=== PATIENT | male | born 1975 | race Two or more races ===

== ENCOUNTER 2016-05-13 07:26 | Emergency (ER) | payer MEDICAID ==
[~2016-05-13] VITALS: Ht 170.2 cm; Wt 74.8 kg
[~2016-05-13 07:26] MED LIST: ALBUTEROL SULF8.5 GM INH; AMOXICILLIN500 MG ORAL; ANTACID MAXIMU355 ML PO; ASPIR 8181 MG ORAL; ASPIRIN81 MG ORAL; ATENOLOL50 MG ORAL; ATORVASTATIN CA10 MG ORAL; Atorvastatin ORAL; BENADRYL50 MG ORAL; CARAFATE1 GM/10 M1 ORAL; CARVEDILOL25 MG ORAL; CYCLOBENZAPRINE10 MG ORAL; ENALAPRIL MALEA10 MG ORAL; ENALAPRIL MALEA20 MG ORAL; FUROSEMIDE40 MG ORAL; GLIPIZIDE5 MG ORAL; HYDROCHLOROTHIA25 MG ORAL; IBUPROFEN600 MG ORAL; LOVAZA1 GM ORAL; NEXIUM20 MG ORAL; NORCO 5-325 TA1 EACH ORAL; PLAVIX75 MG ORAL; PREDNISONE20 MG ORAL; RANITIDINE HCL150 MG ORAL; SPIRONOLACTONE100 MG ORAL; TENORMIN25 MG ORAL; VIBRAMYCIN100 MG ORAL
[2016-05-13] MEDS ORDERED: Ketorolac 30mg Inj IV ONE (08:00)
[2016-05-13] MEDS ORDERED: Albuterol ud Inhalation HHN ONE (08:00)
[2016-05-13] MEDS ORDERED: Morphine Sulfate 2mg/ml Inj IVP ONE (08:00)
--- NOTE | 2016-05-13 08:08 | Emergency Room Report ---
History of Present Illness General Chief Complaint: Abdominal Pain Source: Patient Present Illness HPI The patient presents with 4 days of cough and upper abdominal pain. The pain got worse tonight's ago. Pain is mainly with coughing and moving about. Says upper abdomen and radiates bilaterally to the sides. He is states the pain is 8 /10 and constant but worse when he was about. His nausea but no vomiting. The cough has gotten significant with brown phlegm and some bloods. He's also had fevers and chills. He had bronchitis a year ago and was admitted to the hospital. He denies any change in his bowels. He denies dysuria also. He has felt short of breath also. He states he's not having some wheezing. The patient is diabetic and takes oral medications and is not on insulin at this time. He's not sure what his blood sugars are at this time. Patient admitted 06/2015 for CHF and DM. Had polycythemia. Alleged non- compliance. He does not discuss any cardiac issues. Allergies: Coded Allergies: No Known Allergies (Unverified , 05/18/15) Patient History Past Medical History: see triage record, CHF Past Surgical History: PTCA - 2015 Social History: Reports: alcohol use, Denies: smoking Social History Narrative peer specialist Reviewed Nursing Documentation: PMH: Agreed, PSxH: Agreed Nursing Documentation-PMH Hx Cardiac Problems: Yes - High cholesterol Hx Hypertension: Yes Hx Pacemaker: No Hx Asthma: No Hx COPD: No Hx Diabetes: Yes Hx Cancer: No Hx Gastrointestinal Problems: Yes - GERD Hx Dialysis: No Hx Neurological Problems: No Hx Cerebrovascular Accident: No Hx Seizures: No Review of Systems All Other Systems: negative except mentioned in HPI Physical Exam Vital Signs Date Time Temp Pulse Resp B/P Pulse Ox O2 Delivery O2 Flow Rate FiO2 05/13/16 07:33 100.6 116 18 166/123 99 Room Air Sp02 EP Interpretation: reviewed, normal General Appearance: well appearing, no apparent distress, GCS 15 Head: normocephalic Eyes: bilateral eye PERRL, bilateral eye normal inspection ENT: moist mucus membranes Neck: supple Respiratory: decreased breath sounds, rales Cardiovascular #1: regular rate, rhythm, edema Cardiovascular #2: 2+ radial (R) Gastrointestinal: normal inspection, normal bowel sounds, non tender, no mass, no guarding, no rebound, distended, tenderness - minimal epigastric Musculoskeletal: back normal, gait/station normal, normal range of motion Neurologic: alert, oriented x3, grossly normal Psychiatric: mood/affect normal - with denial Skin: normal inspection, warm/dry Medical Decision Making Diagnostic Impression: Primary Impression: Pneumonia Qualified Codes: J18.9 - Pneumonia, unspecified organism Additional Impressions: Cardiomyopathy Qualified Codes: I42.0 - Dilated cardiomyopathy Polycythemia Hyponatremia ER Course The patient presents with cough fevers and chills and upper abdominal pain. Differential includes pneumonia, bronchitis, gastroenteritis amongst others. The fact that he has a history of congestive heart failures complicating with this patient might have. He also has comorbidities of hypertension and diabetes. Comprehensive evaluation of blood cultures and likely will be obtained also EKG and chest x-ray and abdominal films. CXR with L infiltrate = new without CHF. Cardiomegally. Antibiotics begun, fluids held. D dimer + - needs CTA. CTA neg for PE. Discussed with Dr. Williamson who accepts the patient. Laboratory Tests Test 05/13/16 07:57 White Blood Count 7.3 K/UL (4.8-10.8) Red Blood Count 6.29 M/UL (4.70-6.10) H Hemoglobin 19.8 G/DL (14.2-18.0) *H Hematocrit 58.7 % (42.0-52.0) H Mean Corpuscular Volume 93 FL (80-99) Mean Corpuscular Hemoglobin 31.4 PG (27.0-31.0) H Mean Corpuscular Hemoglobin Concent 33.7 G/DL (32.0-36.0) Red Cell Distribution Width 11.8 % (11.6-14.8) Platelet Count 107 K/UL (150-450) L Mean Platelet Volume 11.5 FL (6.5-10.1) H Neutrophils (%) (Auto) 72.8 % (45.0-75.0) Lymphocytes (%) (Auto) 14.4 % (20.0-45.0) L Monocytes (%) (Auto) 12.1 % (1.0-10.0) H Eosinophils (%) (Auto) 0.1 % (0.0-3.0) Basophils (%) (Auto) 0.6 % (0.0-2.0) Prothrombin Time 12.7 SEC (9.30-11.50) H Prothrombin Time INR 1.2 (0.9-1.1) H PTT 29 SEC (23-33) D-Dimer 518 ng/mL (<500) H Sodium Level 130 mEQ/L (135-145) L Potassium Level 4.3 mEQ/L (3.4-4.9) Chloride Level 87 mEQ/L (98-107) L Carbon Dioxide Level 29 mEQ/L (20-30) Anion Gap 14 (5-15) Blood Urea Nitrogen 15 mg/dL (7-23) Creatinine 1.1 mg/dL (0.7-1.2) Estimate Glomerular Filtration Rate > 60 mL/min (>60) Glucose Level 288 mg/dL (74-106) H Lactic Acid Level 1.90 mmol/L (0.66-2.22) Calcium Level 8.2 mg/dL (8.6-10.2) L Total Bilirubin 1.2 mg/dL (0.0-1.2) Direct Bilirubin 0.3 mg/dL (0.1-0.3) Aspartate Amino Transferase (AST) 67 U/L (5-40) H Alanine Aminotransferase (ALT) 28 U/L (3-41) Alkaline Phosphatase 94 U/L (40-129) Total Creatine Kinase 2074 U/L (38-174) H Troponin I < 0.30 ng/mL (<=0.30) Pro-B-Type Natriuretic Peptide 5369 pg/mL (0-125) H Total Protein 6.9 g/dL (6.6-8.7) Albumin 3.5 g/dL (3.5-5.2) Globulin 3.4 g/dL Albumin/Globulin Ratio 1.0 (1.0-2.7) Lipase 37 U/L (< 60) Microbiology Date/Time Source Procedure Growth Status 05/13/16 07:57 Nasal Nares Influenza Types A,B Antigen (SAVANAH) - Final Complete EKG Diagnostic Results Rate: tachycardiac ST Segments: no acute changes - LAE Rhythm Strip Diag. Results EP Interpretation: yes Rhythm: no PVC's, no ectopy, other - ST Chest X-Ray Diagnostic Results EP Interpretation: Yes Findings: no effusion, no pneumothorax, other - L infiltrate Other X-Ray Diagnostic Results Other X-Ray Diagnostic Results : X-Ray Ordered: abd EP Interpretation: Yes Findings: other - paucity gas, no abstruction, no masses Number of Views: 1 Last Vital Signs Date Time Temp Pulse Resp B/P Pulse Ox O2 Delivery O2 Flow Rate FiO2 05/13/16 11:48 98 18 110/87 100 Room Air 05/13/16 11:29 99.8 05/13/16 08:27 21 Status: improved Disposition: XFER SHT-TRM HOSP Condition: Serious - but stable for transfer Murphy Andrews M.D. May 13, 2016 08:08
[2016-05-13 08:23] VITALS: BP 153/115
[2016-05-13] MEDS ORDERED: Azithromycin Inj IV ONE (08:29)
[2016-05-13] MEDS ORDERED: cefTRIAXone 1 GM in NS 55 ML IVPB ONE (08:30)
[2016-05-13] MEDS ORDERED: Azithromycin 500 MG in D5W 275 ML IVPB ONE (08:30)
[2016-05-13 08:35] LABS: INR 1.2 (0.9-1.1); PROTHROMBIN TIME 12.7 SEC (9.30-11.50)
[2016-05-13 08:38] LABS: ALANINE AMINOTRANSFERASE 28 U/L (3-41); ANION GAP 14 (5-15); ASPARTATE AMINO TRANSFERASE 67 U/L (5-40); CALCIUM 8.2 mg/dL (8.6-10.2); CARBON DIOXIDE 29 mEQ/L (20-30); CHLORIDE 87 mEQ/L (98-107); CREATININE 1.1 mg/dL (0.7-1.2); GLOMERULAR FILTRATION RATE > 60 mL/min (>60); HEMOLYSIS 9; POTASSIUM 4.3 mEQ/L (3.4-4.9); SODIUM 130 mEQ/L (135-145); TOTAL PROTEIN 6.9 g/dL (6.6-8.7)
[2016-05-13 08:39] LABS: TROPONIN I < 0.30 ng/mL (<=0.30)
[2016-05-13 08:59] LABS: BILIRUBIN,DIRECT 0.3 mg/dL (0.1-0.3)
[2016-05-13 09:02] LABS: BASOPHILS % (AUTO) 0.6 % (0.0-2.0); EOSINOPHILS % (AUTO) 0.1 % (0.0-3.0); LYMPHOCYTES % (AUTO) 14.4 % (20.0-45.0); MEAN CORPUSCULAR HEMOGLOBIN 31.4 PG (27.0-31.0); MEAN CORPUSCULAR HGB CONC 33.7 G/DL (32.0-36.0); MEAN CORPUSCULAR VOLUME 93 FL (80-99); MEAN PLATELET VOLUME 11.5 FL (6.5-10.1); MONOCYTES % (AUTO) 12.1 % (1.0-10.0); NEUTROPHILS % (AUTO) 72.8 % (45.0-75.0); PLATELET COUNT 107 K/UL (150-450); RED BLOOD COUNT 6.29 M/UL (4.70-6.10); RED CELL DISTRIBUTION WIDTH 11.8 % (11.6-14.8); WHITE BLOOD COUNT 7.3 K/UL (4.8-10.8)
[2016-05-13 09:30] VITALS: BP 145/108
--- NOTE | 2016-05-13 11:01 | Diagnostic Imaging Report ---
Clinical Indication:Cough and upper abdominal pain Technique: No oral contrast utilized, per emergency room physician request IV administration nonionic contrast. Arterial phase spiral acquisitions obtained through the chest. Multiplanar and 3-D reconstructions were generated. Venous phase acquisitions obtained through the abdomen and pelvis. Multiplanar reconstructions were generated. Total dose length product 1546 mGycm. CTDIvol(s) 12, 37, 24, 13 mGy Comparison: Chest CT dated 01/16/2015, abdomen pelvis CT dated 10/03/2014 Findings: Chest: There is good quality opacification of the pulmonary arteries. No intraluminal filling defects or other findings to suggest acute pulmonary embolus are evident. No evidence of thoracic aortic aneurysm or dissection. No pulmonary arterial dilatation. There is generalized four-chamber cardiomegaly, also evident previously, but no isolated right ventricular dilatation is evident there is reflux of contrast into the inferior vena cava and hepatic veins.. Atherosclerotic plaquing results in mild, approximately 30% diameter, narrowing of the left subclavian artery origin. Extensive fluffy parenchymal infiltrates are seen scattered throughout the left lung. There is also generalized bilateral parenchymal groundglass opacity. Neither of these findings are evident previously. A small calcified granuloma is seen within the lingula. The pleural spaces are clear. The right lung is clear other than the groundglass opacity. The included thyroid is unremarkable. No mediastinal or hilar mass or adenopathy. No pericardial effusion. The bones are unremarkable. The esophagus is unremarkable.. Abdomen pelvis: The liver is diffusely hypoattenuating, consistent with fatty change. The gallbladder is nondistended. The gallbladder wall appears edematous. No biliary ductal dilatation. No focal hepatic abnormality. The pancreas, adrenals, kidneys are unremarkable. No retroperitoneal or mesenteric mass or adenopathy. No pelvic mass or adenopathy. Prostate is prominent. The bladder is nondistended. Normal caliber abdominal aorta. There are some dilated mid small bowel loops in the anterior abdomen. There are intermittent areas of normal caliber small bowel, and no definite abrupt tapering is demonstrated. Nonetheless, distal small bowel loops are nondistended. Some prominent small bowel loops are fluid-filled. There is no wall thickening. The appendix is normal. There is colonic diverticulosis. No evidence of diverticulitis. Trace free fluid is seen over the dome of the liver and within the left paracolic gutter. There is also congestion of the mesentery There is mild edema of the bilateral flank subcutaneous fat. The bones are unremarkable. Impression: Negative for evidence of acute pulmonary embolus or thoracic aortic dissection Extensive of the infiltrates throughout the left lung. This may represent pulmonary edema, but suspect pneumonia. Correlate with clinical findings Marked cardiomegaly, also previously described. Diffuse bilateral pulmonary parenchymal groundglass opacity. This is a nonspecific finding, but in the setting of cardiomegaly could reflect mild diffuse pulmonary edema Mild narrowing of the left subclavian artery origin Focally prominent upper mid abdominal small bowel loops. Suspect this may reflect enteritis or focal ileus again the small caliber of the distal small bowel loops, early or partial small bowel obstruction is also a possibility Trace ascites and mesenteric congestion Bilateral flank edema and subcutaneous fat Gallbladder wall thickening/edema. No stones (note that no stones are evident on prior sonography, either). Suspect secondary to whatever process is causing ascites and mesenteric congestion such as right heart failure, but acalculous acute cholecystitis cannot be completely ruled out. Consider nuclear medicine hepatobiliary scan if there is high clinical suspicion Fa -- tty liver Diverticulosis. No evidence of diverticulitis Evidence of old pulmonary granulomatous disease The CT scanner at [facility] is accredited by the [employer] and the scans are performed using protocols designed to limit radiation exposure to as low as reasonably achievable to attain images of sufficient resolution adequate for diagnostic evaluation.
[2016-05-13 11:29] VITALS: BP 110/87
--- NOTE | 2016-05-13 11:44 | Diagnostic Imaging Report ---
Indication: Abdominal pain Technique: Supine view of the abdomen Comparison: none Findings: There is a single prominent small bowel loop in the left midabdomen. Bowel gas pattern is otherwise unremarkable. No masses or calcifications. Impression: Prominent left mid abdominal small bowel loop, possibly representing a focal ileus.
[2016-05-13 11:48] VITALS: BP 110/87
--- NOTE | 2016-05-13 13:55 | Diagnostic Imaging Report ---
Indication: COUGH Technique: One view of the chest Comparison: 07/07/2015 Findings: Interim development of left midlung infiltrates. Pleural spaces are clear. The right lung is clear. The heart is enlarged Impression: Left midlung infiltrates, suspect pneumonia
--- NOTE | 2016-05-15 15:17 | Cardiology Report ---
APPROVED REPORT EKG Measurement Heart [id number] Sinus tachycardia Left atrial enlargement Left ventricular hypertrophy Nonspecific T wave abnormality Abnormal ECG
== END 2016-05-13 11:55 | disposition short-term general hospital (02) ==
LOC: EMR 08:08
DX: J18.9 Pneumonia, unspecified organism (principal); I42.0 Dilated cardiomyopathy; D75.1 Secondary polycythemia; E87.1 Hypo-osmolality and hyponatremia; R11.0 Nausea; I10 Essential (primary) hypertension; E11.9 Type 2 diabetes mellitus without complications
CPT/HCPCS: 36415; 71010; 71275; 72191; 74000; 74175; 80053; 82248; 82550; 82962; 83605; 83690; 83880; 84484; 85025; 85379; 85610; 85730; 86710; 87040; 93005; 94640; 94664; 96374; 96375; 99285; J0456; J0696; J1885; J2270; J2405; Q9967

== ENCOUNTER 2016-07-25 01:36 | Emergency (ER) | payer MEDICAID ==
[~2016-07-25] VITALS: Ht 167.6 cm; Wt 74.8 kg
[2016-07-25 02:04] VITALS: BP 215/119
[2016-07-25] MEDS ORDERED: Carvedilol 12.5mg tab ORAL ONE (02:15)
--- NOTE | 2016-07-25 02:22 | Emergency Room Report ---
History of Present Illness General Chief Complaint: Back Pain-No Injury Source: Patient Present Illness HPI Patient is a 41-year-old male who presented after increased left leg pain. Patient gradual onset of symptoms. The patient any fever. He had prior history of similar type symptoms. The patient previously been diagnosed with sciatica. He denied any recent trauma. He denied any fever. He denied abdominal pain. He denied numbness or weakness. He had been on peritoneal dialysis. Allergies: Coded Allergies: No Known Allergies (Unverified , 05/18/15) Patient History Past Medical History: see triage record Reviewed Nursing Documentation: PMH: Agreed, PSxH: Agreed Nursing Documentation-PMH Hx Cardiac Problems: Yes - CHF Hx Hypertension: Yes Hx Pacemaker: No Hx Asthma: No Hx COPD: No Hx Diabetes: Yes Hx Cancer: No Hx Gastrointestinal Problems: Yes - PERITONEAL DIALYSIS Hx Dialysis: No Hx Neurological Problems: No Hx Cerebrovascular Accident: No Hx Seizures: No Review of Systems All Other Systems: negative except mentioned in HPI Physical Exam Vital Signs Date Time Temp Pulse Resp B/P Pulse Ox O2 Delivery O2 Flow Rate FiO2 07/25/16 01:47 97.9 106 18 210/135 97 Room Air General Appearance: well appearing, no apparent distress, alert, GCS 15, non- toxic Head: normocephalic, atraumatic ENT: hearing grossly normal, normal voice Neck: full range of motion, supple Respiratory: no respiratory distress, speaking full sentences Cardiovascular #1: regular rate, rhythm, no edema Musculoskeletal: normal inspection, back normal, digits/nails normal, no calf tenderness Neurologic: normal inspection, alert, oriented x3, responsive, 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 Differential diagnosis included but was not limited to herniated disc, cauda equina syndrome, abdominal aortic aneurysm, perforated ulcer, spinal epidural abscess, spinal stenosis, lumbar fracture, metastatic lesion, pyelonephritis. Patient was given medications for his blood pressure as well as pain. The patient does appear to have any current concerning signs or symptoms.The patient is advised to follow up with primary care doctor in 1-2 days. Patient is advised to return if any worsening condition or if any changes in status that are concerning. Last Vital Signs Date Time Temp Pulse Resp B/P Pulse Ox O2 Delivery O2 Flow Rate FiO2 07/25/16 02:04 97.9 101 18 215/119 100 Room Air Status: improved Disposition: HOME, SELF-CARE Condition: Stable Scripts Gabapentin* (NEURONTIN*) 400 Mg Capsule 400 MG ORAL THREE TIMES A DAY for For Pain, #15 CAP 0 Refills Prov: Matias Hinkle 07/25/16 Referrals: NOT CHOSEN IPA/,REFERRING (PCP) Matias Hinkle July 25, 2016 02:22
[2016-07-25] MEDS ORDERED: NEURONTIN400 MG ORAL (02:41)
[2016-07-25 02:52] VITALS: BP 193/115
[2016-07-25 03:05] VITALS: BP 193/115
== END 2016-07-25 03:06 | disposition home or self-care (01) ==
LOC: EMR 02:00
DX: I10 Essential (primary) hypertension (principal); N18.6 End stage renal disease; Z99.2 Dependence on renal dialysis; M79.605 Pain in left leg; M54.30 Sciatica, unspecified side; I50.9 Heart failure, unspecified; E11.9 Type 2 diabetes mellitus without complications; K92.9 Disease of digestive system, unspecified
CPT/HCPCS: 99283

== ENCOUNTER 2016-07-29 17:33 | Emergency (ER) | payer MEDICAID ==
[~2016-07-29] VITALS: Ht 170.2 cm; Wt 74.8 kg
[~2016-07-29 17:33] MED LIST changes: +NEURONTIN400 MG ORAL
[2016-07-29] MEDS ORDERED: Ketorolac 30mg Inj IM ONE (19:15)
[2016-07-29] MEDS ORDERED: traMADol 50mg tab ORAL ONE (19:15)
[2016-07-29 19:20] VITALS: BP 197/126
[2016-07-29 19:50] VITALS: BP 197/126
[2016-07-29] MEDS ORDERED: IBUPROFEN600 MG ORAL (19:53)
[2016-07-29] MEDS ORDERED: TRAMADOL HCL50 MG ORAL (19:53)
--- NOTE | 2016-07-29 23:15 | Emergency Room Report ---
History of Present Illness General Chief Complaint: Back Pain-No Injury Source: Patient Present Illness HPI The patient is a 41-year-old male presenting for left lower back pain which radiates down the left leg. The patient was seen in this emergency department for the same complaint 4 days prior and given prescription for gabapentin and Motrin. The patient states that these medications did not help. He denies any injury or known reason for this pain the pain is worse with bending over and walking. He denies numbness or tingling. Pain is described as a 9/10 dull ache. He denies any other symptoms including fever, chills, rash, dysuria Allergies: Coded Allergies: No Known Allergies (Unverified , 05/18/15) Patient History Past Medical History: see triage record Pertinent Family History: none Reviewed Nursing Documentation: PMH: Agreed, PSxH: Agreed Nursing Documentation-PMH Past Medical History: No History, Except For Hx Cardiac Problems: Yes - CHF Hx Hypertension: Yes Hx Pacemaker: No Hx Asthma: No Hx COPD: No Hx Diabetes: Yes Hx Cancer: No Hx Gastrointestinal Problems: Yes - PERITONEAL DIALYSIS Hx Dialysis: No Hx Neurological Problems: No Hx Cerebrovascular Accident: No Hx Seizures: No Review of Systems All Other Systems: negative except mentioned in HPI Physical Exam Vital Signs Date Time Temp Pulse Resp B/P Pulse Ox O2 Delivery O2 Flow Rate FiO2 07/29/16 18:26 98.4 118 20 197/126 99 Room Air Sp02 EP Interpretation: reviewed, normal General Appearance: no apparent distress, alert, GCS 15, non-toxic Head: normocephalic, atraumatic Eyes: bilateral eye PERRL, bilateral eye normal inspection ENT: hearing grossly normal, normal pharynx, no angioedema, normal voice Musculoskeletal: normal inspection, tender - LL back and buttock Neurologic: alert, oriented x3, responsive, motor strength/tone normal, sensory intact, speech normal Psychiatric: judgement/insight normal, memory normal, mood/affect normal, no suicidal/homicidal ideation Reflexes: 2+ knee (R), 2+ knee (L), 2+ ankle (R), 2+ ankle (L) Skin: normal color, no rash, warm/dry, well hydrated Lymphatic: no adenopathy Medical Decision Making PA Attestation Dr. Peterson is my supervising physician. Patient management was discussed with my supervising physician Diagnostic Impression: Primary Impression: Sciatica Qualified Codes: M54.30 - Sciatica, unspecified side Additional Impression: hypertension ER Course The patient is a 41-year-old male presenting for left lower back pain which radiates down the left leg. Differential diagnoses considered but not limited to: Sciatica, muscle strain, pyelonephritis, renal lithiasis, disc herniation Physical exam: Patient is significantly hypertensive. He states he forgot to take medication today. Findings are consistent with left-sided sciatica. The patient is given Toradol and tramadol and states pain is much better. He is given clonidine for hypertension. He states will continue taking antihypertensive medications tomorrow and will followup with PMD. ER precautions are given Last Vital Signs Date Time Temp Pulse Resp B/P Pulse Ox O2 Delivery O2 Flow Rate FiO2 07/29/16 19:50 98.4 20 197/126 99 Room Air 07/29/16 18:26 118 Status: improved Disposition: HOME, SELF-CARE Condition: Improved Scripts Ibuprofen* (MOTRIN*) 600 Mg Tablet 600 MG ORAL Q6H Y for For Pain, #30 TAB Prov: BENNETT MAIER 07/29/16 Tramadol Hcl* (ULTRAM*) 50 Mg Tablet 50 MG ORAL Q6H Y for For Pain, #15 TAB 0 Refills Prov: BENNETT MAIER. 07/29/16 Patient Instructions: Sciatica, Back Pain, Adult Additional Instructions: I discussed my findings with the patient. All questions and concerns have been answered. Treatment and medication compliance have been addressed. I advised the patient that they need to follow up with PMD in 3-5 days. Return to ED if symptoms worsen, new symptoms arise, or if needed for any reason. Patient verbalized understanding of discharge instructions. BENNETT MAIER July 29, 2016 23:14
== END 2016-07-29 19:50 | disposition home or self-care (01) ==
LOC: EMR 18:48
DX: M54.30 Sciatica, unspecified side (principal); I10 Essential (primary) hypertension; I50.9 Heart failure, unspecified; E11.9 Type 2 diabetes mellitus without complications
CPT/HCPCS: 96372; 99284; J1885